=== PATIENT | female | born 1985 | race Caucasian/White ===

== ENCOUNTER 2016-05-18 22:25 | Emergency (ER) | payer OTHER ==
[~2016-05-18 22:25] MED LIST: AUGMENTIN PO; BACTRIM DS TABL1 TA1 PO; BACTRIM DS TABL1 TAB PO; CLEOCIN HCL300 M1 PO; CLINDAMYCIN HC300 MG PO; EMETROL; FLINTSTONES M200 MCG PO; IBUPROFEN600 MG PO; KEFLEX500 MG PO; LEVOTHROID25 MCG PO; LEVOTHYROXINE25 MCG PO; LORTAB 5-325 M1 EACH PO; NO MEDICATIONS; PEPCID AC20 MG PO; PHENERGAN PO; VICODIN 5/1 TAB 5/50 PO; VICODIN 5/500 T1 TAB PO
== END 2016-05-18 22:26 | disposition home or self-care (01) ==
LOC: SED 22:25
DX: K08.89 Other specified disorders of teeth and supporting structures (principal); F17.210 Nicotine dependence, cigarettes, uncomplicated
CPT/HCPCS: 99282